=== PATIENT | female | born 1985 | race Caucasian/White ===

== ENCOUNTER 2019-07-26 17:50 | Emergency (ER) | payer MEDICAID ==
[~2019-07-26] VITALS: Ht 160 cm; Wt 95.7 kg
[2019-07-26 18:32] VITALS: Ht 160 cm; Wt 95.7 kg
[2019-07-26 21:17] VITALS: BP 116/81
== END 2019-07-26 21:17 | disposition home or self-care (01) ==
LOC: ED 17:50
DX: M54.5 Low back pain (principal); R11.0 Nausea; M79.7 Fibromyalgia; M19.90 Unspecified osteoarthritis, unspecified site; Z90.710 Acquired absence of both cervix and uterus; Z85.41 Personal history of malignant neoplasm of cervix uteri
CPT/HCPCS: J1885